=== PATIENT | female | born 1970 | race Caucasian/White ===

== ENCOUNTER 2017-10-08 08:36 | Emergency (ER) | payer OTHER ==
[2017-10-08 08:50] VITALS: TEMP 98.4; BMI 27.4
--- NOTE | 2017-10-08 09:11 | PDOC ---
History of Present Illness - General Chief Complaint: Edema Stated Complaint: SORE THROAT Time Seen by Provider: 10/08/17 09:11 - History of Present Illness Initial Comments: Vivien Styles is a 47yo woman with a PMH of GERD and who reports a history of anemia and "a hole in her heart" who presents today complaining of generalized body aches since Monday as well as swelling in her hands, feet, and knees bilaterally. She states that she started having pain in her hands, wrists, elbows, knees, ankles, and feet as well as a headache on Monday. Initially she stated that this pain had resolved this morning but later reported that the pain had worsened today. She did not try anything at home to alleviate the pain and did not see her primary physician, though she does report she was told that she has anemia last month at an appointment with her PCP. Yesterday, she felt increased joint pain and additionally noticed swelling in her hands, feet, and knees. Today, the knee swelling has resolved, but she reports significant swelling in her hands to the point that she had difficulty making a fist. She has been trying to move her hands all morning, and the swelling has improved. She additionally reported sore throat as her chief complaint, but initially denied having a sore throat. Later, though, she stated throat pain that makes it difficult to swallow. Ms Styles reports a mild fever last Monday, temperature unknown, but denies any shaking chills, SOB, chest pain, nausea/vomiting, or nasal congestion. Past History - Past Medical History Allergies/Adverse Reactions: Allergies Allergy/AdvReac Type Severity Reaction Status Date / Time No Known Allergies Allergy Verified 10/08/17 08:44 Home Medications: Ambulatory Orders Aspirin [Aspirin EC] 81 mg PO DAILY #0 07/30/14 Anemia: No Asthma: No Cancer: No Cardiac Disorders: Yes (H/O PDA?) CVA: Yes (2003) COPD: No CHF: No Dementia: No Diabetes: No GI Disorders: Yes (GASTRITIS-H. PYLORI) Disorders: Yes (ENLARGED UTERUS) HTN: No Hypercholesterolemia: Yes Liver Disease: No Seizures: No Thyroid Disease: No - Surgical History Abdominal Surgery: No Appendectomy: No Cardiac Surgery: (CARDIAC CATH 2006-NORMAL;) Cholecystectomy: No Lung Surgery: No Neurologic Surgery: No Orthopedic Surgery: No - Suicide/Smoking/Psychosocial Hx Smoking Status: No Smoking History: Never smoked Number of Cigarettes Smoked Daily: 0 Hx Alcohol Use: No Drug/Substance Use Hx: No Substance Use Type: None Hx Substance Use Treatment: No Review of Systems - Review of Systems Comments:: General: No chills, no weight or appetite change. +subjective fever, +malaise HEENT: No changes in vision, no changes in hearing, no congestion. +Sore throat , +swollen glands, +dysphagia (history and current) CV: No chest pain, no palpitations. +h/o unknown heart surgery Pulm: No SOB, no cough, no wheezing GI: No nausea or vomiting, no change in bowel habits : No frequency, no urgency, no dysuria Musc: See HPI Skin: No rash, no lesions, no erythema Endo: No excessive thirst, no heat/cold intolerance Heme: No unusual bruising or bleeding. +Swollen glands at rt jaw and groin Neuro: No syncope, no numbness/tingling, no focal weakness. +h/o CVA Vasc: No claudication Psych: No recent change in mood, no SI or HI *Physical Exam - Vital Signs Last Vital Signs Temp Pulse Resp BP Pulse Ox 98.4 F 91 H 18 119/74 99 10/08/17 08:41 10/08/17 08:41 10/08/17 08:41 10/08/17 08:41 10/08/17 08:41 - Physical Exam Comments: General: Comfortable, no acute distress HEENT: PERRL, EOMI, MMM, voice normal, normal neck ROM, no LAD, no oral swelling or lesions, tonsils normal Cards: RRR, no murmur appreciated Pulm: Comfortable on room air, clear to auscultation bilaterally Abd: Soft, nontender, nondistended Back: No spinal tenderness : No CVA tenderness Ext: Atraumatic. No LE edema. Passive and active ROM intact. Strength 5/5 and equal bilaterally. 1+ edema in b/l feet, nonpitting. Possible symmetric swelling of b/l fingers, unable to determine without baseline Vasc: Extremities WWP. Palpable radial pulse bilaterally Neuro: A&Ox3, CN grossly intact, face symmetric, normal speech, motor/sensory grossly intact and symmetric. Ambulates normally, no loss of balance. Psych: Mood appropriate to situation ED Treatment Course - LABORATORY CBC & Chemistry Diagram: 10/08/17 09:51 10/08/17 09:51 Medical Decision Making - Medical Decision Making 10/08/17 10:05 Vivien Styles is a 47yo woman with a PMH of GERD, previous CVA, dysphagia and who reports recently diagnosed anemia who presents today with generalized body/ joint pain and swelling of her b/l hands and feet. Her medical history is somewhat unclear; she reports a history of heart surgery, but there is no record in her chart. It is unclear whether her symptoms could be explained by a pre-existing medical condition. - No fevers, chills, or systemic sign of infection - ROM and strength is intact in all extremities, no focal neurological symptoms - Joint pain is most likely a mild viral illness vs arthritis - No concern for severe illness given essentially normal physical exam and vitals. - CBC, BMP pending - Ibuprofen for pain 10/08/17 10:52 - Labs and vitals WNL - Discussed with patient that there is no acute, emergent problem that needs to be addressed in the ED. No s/s of infection. Strongly recommended follow up with her PCP in the next 1-2 days for additional workup if symptoms do not resolve. Ms Styles stated agreement with this plan - Will provide with information about joint pain. Seen and discussed with Dr Brewer. *DC/Admit/Observation/Transfer Diagnosis at time of Disposition: Joint pain Qualifiers: Joint pain location: hand Laterality: bilateral Qualified Code(s): M25.541 - Pain in joints of right hand; M25.542 - Pain in joints of left hand - Discharge Dispostion Disposition: HOME Condition at time of disposition: Good Decision to Admit order: No - Referrals Referrals: Marbella Stafford MD [Primary Care Provider] - - Patient Instructions Printed Discharge Instructions: DI for Joint Pain, DI for Arthritis Print Language: PALESTINIAN - Post Discharge Activity
[2017-10-08] MEDS ORDERED: IBUPROFEN 400 MG TABLET (FP) PO ONE ×2 (09:41→09:49)
--- NOTE | 2017-10-08 09:52 | PDOC ---
Attending Attestation - Resident Resident Name: CristianaRitu - ED Attending Attestation I have performed the following: I have examined & evaluated the patient, The case was reviewed & discussed with the resident, I agree w/resident's findings & plan, Exceptions are as noted - HPI HPI: 10/08/17 09:52 Patient is a 47 year old female with a significant past medical history of GERD , and Gastric Ulcer, who presents to the ED with complaints of bilateral feet swelling that began 1 week ago. Patient reports experiencing gradually increased bilateral feet swelling as well as associated symptoms of bilateral hand swelling, throat pain, and general body pain that began 5 days ago. She reports general body pain increased this morning as well as feeling stiffness in her hands, prompting her to come into the ED for further evaluation. Pt reports stiffness has improved as the day has progressed and now her hands are no longer stiff. Denies hx RA or arthritis. Has not seen her PMD for these sxs. Pt able to bear weight and ambulate w/o difficulty. Denies chest pain, Sob. Denies Nausea, vomiting. Denies trauma to affected areas. Denies change in appetite, change in diet. Denies fevers, chills. Denies contact with sick individuals, out of state travelling. Denies dysuria, hematuria. Denies constipation, diarrhea. Denies any other sick individuals. Allergies: None Social history: No smoking. No alcohol. No illicit drugs. Surgical history: None PMD: Dr. Marbella Browning-Bolivar - Physicial Exam PE: 10/08/17 09:48 GENERAL: Awake, alert, and fully oriented, in no acute distress HEAD: No signs of trauma EYES: PERRLA, EOMI, sclera anicteric, conjunctiva clear ENT: Auricles normal inspection, hearing grossly normal, nares patent, oropharynx clear without erythema or exudates. Moist mucosa NECK: Normal ROM, supple, no lymphadenopathy, JVD, or masses LUNGS: Breath sounds equal, clear to auscultation bilaterally. No wheezes, and no crackles HEART: Regular rate and rhythm, normal S1 and S2, no murmurs, rubs or gallops ABDOMEN: Soft, nontender, normoactive bowel sounds. No guarding, no rebound. No masses EXTREMITIES: Normal range of motion, mild non pitting edema to dorsum of feet b/ l. No clubbing or cyanosis. No cords, erythema, or tenderness NEUROLOGICAL: Normal speech, cranial nerves intact, negative pronator drift, 5/ 5 strength in all 4 extremities, normal sensation to light touch in all 4 extremities, normal cerebellar exam, normal gait, normal reflexes and tone SKIN: Warm, Dry, normal turgor, no rashes or lesions noted. - Medical Decision Making 10/08/17 09:44 47yo F hx gastritis presents to the ED 1 week of total body pain, worse in the feet, ankles, knees. Pt reports swelling in her feet since yesterday as well. Vitals wnl. Exam with mild edema to dorsum of feet b/l. Likely viral syndrome vs systemic arthritic process given sxs worse in the morning, and improve along the day. Will check basic labs, likely DC. Pt has good outpt f/u. 10/08/17 11:04 Labs wnl. Pt is very well appearing, ambulating in ED. Does not appear to need emergency care at this time. Advised to f/u with PMD in 1-2 days. Pt stable for DC home I discussed the physical exam findings, ancillary test results and final diagnoses with the patient. I answered all of the patient's questions. The patient was satisfied with the care received and felt comfortable with the discharge plan and treatment plan. The patient will call their primary care physician within 24 hours to arrange follow-up and will return to the Emergency Department with any new, persistent or worsening symptoms.
[2017-10-08 10:11] LABS: HEMATOCRIT 34.5 % (32.4-45.2); HEMOGLOBIN 11.4 GM/dL (10.7-15.3); MCH 26.2 pg (25.7-33.7); MCHC 32.9 g/dl (32.0-36.0); MEAN CELL VOLUME 79.6 fl (80-96); MEAN PLT VOLUME 6.6 fl (7.5-11.1); PLATELET COUNT 326 K/MM3 (134-434); RBC 4.34 M/mm3 (3.60-5.2); RDW 25.2 % (11.6-15.6); WHITE BLOOD COUNT 4.4 K/mm3 (4.0-10.0)
[2017-10-08 10:40] LABS: ANION GAP 6 (8-16); BLOOD UREA NITROGEN 6 mg/dL (7-18); CHLORIDE 113 mmol/L (98-107); CO2 25 mmol/L (21-32); GLUCOSE,RANDOM 94 mg/dL (74-106); POTASSIUM 4.2 mmol/L (3.5-5.1); SODIUM 144 mmol/L (136-145)
[2017-10-08 10:41] LABS: CREATININE 0.7 mg/dL (0.55-1.02)
[2017-10-08 11:07] VITALS: BP 116/72; PULSE 77
== END 2017-10-08 11:06 | disposition home or self-care (01) ==
LOC: JER 08:36
DX: M25.572 Pain in left ankle and joints of left foot (principal); M25.571 Pain in right ankle and joints of right foot; M25.542 Pain in joints of left hand; M25.541 Pain in joints of right hand; D64.9 Anemia, unspecified; Z87.19 Personal history of other diseases of the digestive system; Z86.73 Personal history of transient ischemic attack (TIA), and cerebral infarction without residual deficits; Z98.61 Coronary angioplasty status
CPT/HCPCS: 36415; 80048; 85027; 99283-25

== ENCOUNTER 2020-10-15 20:18 | Emergency (ER) | payer OTHER ==
[2020-10-15 20:27] VITALS: TEMP 98.2; BMI 31.8
[2020-10-15] MEDS ORDERED: MAG HYDROX/AL HYDROX/SIMETH -MYLANTA- ORAL SUSPENSION PO ONE (21:41)
[2020-10-15] MEDS ORDERED: SODIUM CHLORIDE 0.9% 500 ML INFUS.BAG IV ONE (21:41)
[2020-10-15] MEDS ORDERED: FAMOTIDINE 20 MG/50 ML IVPB 20 MG/50 ML MG IVPB ONE ×2 (21:41→22:00)
[2020-10-15] MEDS ORDERED: MAG HYDROX/AL HYDROX/SIMETH 30 ML UNIT-DOSE CUP ONE (22:00)
[2020-10-15 22:28] LABS: BASO % 0.3 % (0-2.0); EOS % 0.5 % (0-4.5); HEMATOCRIT 31.3 % (32.4-45.2); HEMOGLOBIN 10.2 GM/dL (10.7-15.3); LYMPH % 55.6 % (8-40); MCH 22.7 pg (25.7-33.7); MCHC 32.6 g/dl (32.0-36.0); MEAN CELL VOLUME 69.8 fl (80-96); MEAN PLT VOLUME 6.7 fl (7.5-11.1); MONO % 7.6 % (3.8-10.2); PLATELET COUNT 207 10^3/uL (134-434); RBC 4.49 M/mm3 (3.60-5.2); WHITE BLOOD COUNT 2.4 K/mm3 (4.0-10.0)
[2020-10-15 22:54] LABS: CHLORIDE 109 mmol/L (98-107); SODIUM 141 mmol/L (136-145)
[2020-10-15 22:57] LABS: ALBUMIN 3.4 g/dl (3.4-5.0); ANION GAP 7 MMOL/L (8-16); BLOOD UREA NITROGEN 8.8 mg/dL (7-18); CO2 26 mmol/L (21-32); GLUCOSE,RANDOM 97 mg/dL (74-106); LIPASE 249 U/L (73-393)
[2020-10-15 23:00] LABS: URINE APPEARANCE CLEAR; URINE BILIRUBIN NEGATIVE (NEGATIVE); URINE COLOR YELLOW; URINE GLUCOSE (UA) NEGATIVE (NEGATIVE); URINE KETONE NEGATIVE (NEGATIVE); URINE LEUK ESTERASE NEGATIVE (NEGATIVE); URINE NITRITE NEGATIVE (NEGATIVE); URINE PROTEIN NEGATIVE (NEGATIVE); URINE UROBILINOGEN 0.2 mg/dL (0.2-1.0)
[2020-10-15 23:00] LABS: CREATININE 0.8 mg/dL (0.55-1.3); SGOT/AST 51 U/L (15-37); SGPT/ALT 70 U/L (13-61)
[2020-10-15 23:02] LABS: BILIRUBIN,TOTAL 0.2 mg/dL (0.2-1); TOT PROT 6.8 g/dl (6.4-8.2)
[2020-10-15 23:03] LABS: ALK PHOS 75 U/L (45-117)
[2020-10-15 23:14] LABS: CALCIUM 7.2 mg/dL (8.5-10.1)
[2020-10-16] VITALS: BP 126/83; PULSE 78
== END 2020-10-16 00:37 | disposition home or self-care (01) ==
LOC: JER 20:18
PROC: 3E033GC Introduction of Other Therapeutic Substance into Peripheral Vein, Percutaneous Approach (ICD-10-PCS; principal; 2020-10-15)
DX: R10.13 Epigastric pain (principal)
CPT/HCPCS: 36415; 71045-TC-FY; 80053; 81003; 82550; 83605; 83690; 84484; 85025; 85730; 87086; 87186; 87880; 93005; 93010; 99284-25; C9803; U0003; U0005

== ENCOUNTER → 2023-01-16 | Day surgery (SDC) | payer OTHER | END | disposition home or self-care (01) | LOC: JRADIR 09:59 | PROVIDERS: ATTEND Nurse Practitioner Family | PROC: 0G9G3ZX Drainage of Left Thyroid Gland Lobe, Percutaneous Approach, Diagnostic (ICD-10-PCS; principal; 2023-01-16) | DX: E04.1 Nontoxic single thyroid nodule (principal) | CPT/HCPCS: 10005; 76942; 88173; 88305-TC ==